=== PATIENT | female | born 2000 | race Caucasian/White ===

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

== ENCOUNTER 2019-11-15 02:19 | Emergency (ER) | payer MEDICAID ==
[~2019-11-15] VITALS: Ht 170.2 cm; Wt 93.0 kg
[2019-11-15 02:44] VITALS: BP 122/88
[2019-11-15 04:18] LABS: Urine Bacteria MOD /hpf (None Seen); Urine Blood 2+ /uL (Negative); Urine Mucus FEW (None Seen); Urine Specific Gravity 1.021 (1.001-1.035); Urine WBC 27 /hpf (0 - 5)
[2019-11-15] MEDS ORDERED: LIDOCAINE 1% HCL (LOCAL ANESTH.) INJ 20ML MDV ID ONE (04:30)
[2019-11-15] MEDS ORDERED: cefTRIAXone SOD 1,000 MG VL IM ONE (04:30)
[2019-11-15] MEDS ORDERED: cefTRIAXone W LIDOCAINE 1 GM IM IM ONE (04:45)
== END 2019-11-15 05:07 | disposition home or self-care (01) ==
LOC: ER 02:21
DX: J01.00 Acute maxillary sinusitis, unspecified (principal); J45.909 Unspecified asthma, uncomplicated
CPT/HCPCS: 71045; 73562; 81001; 81025; 96372; 99284; J0696; J2001